=== PATIENT | female | born 1945 | race African-American/Black ===

== ENCOUNTER → 2019-12-04 | Outpatient (CLI) | payer OTHER ==
[~2019-12-04] MED LIST: AMITRIPTYLINE H10 M3 PO; BUTALB-APAP-CA1 EACH PO; BYDUREON P2 MG/0.65 SQ; CLONIDINE0.1 PO; COLCHICINE0.6 MG PO; DESIPRAMINE 2525 M1 PO; FUROSEMIDE 20 M20 MG PO; GABAPENTIN 100100 MG; HYDROCODONE-AP1 EAC6 PO; KEFLEX500 MG PO; LANTUS100 UNIT/M SQ; LYRICA 50 MG50 MG; MAG-OXIDE400 MG PO; NORVASC10 MG PO; NORVASC2.5 MG; NOVOLOG100 UNIT/1 SQ; NYAMYC15 GM TOP; PERCOCET 5-3251 EACH PO; ROCALTROL0.5 MCG PO
== END ==
LOC: SJCVCIMAG 09:10
PROVIDERS: ATTEND Podiatrist Foot & Ankle Surgery
DX: I73.9 Peripheral vascular disease, unspecified (principal)

== ENCOUNTER → 2020-02-10 | Outpatient (CLI) | payer OTHER | LOC: ULTRA 15:51 | PROVIDERS: ATTEND Podiatrist Foot & Ankle Surgery | DX: M25.474 Effusion, right foot (principal); M25.471 Effusion, right ankle ==